=== PATIENT | male | born 1985 | race American Indian/Alaskan Native ===

== ENCOUNTER 2018-02-22 17:01 | Emergency (ER) | payer SELFPAY ==
[~2018-02-22] VITALS: Ht 175.3 cm; Wt 122.5 kg
[~2018-02-22 17:01] MED LIST: Bactrim Ds Tab1 EACH PO; CEPH500 PO; Nix Lice Treatm59 ML TOP; PERM5TC TOP; Permethrin60 GM TP; SULTRIDS PO; TRAZADONE; TRIA80TC TOP; Triamcinolone A15 GM TOP
== END 2018-02-22 17:35 ==
LOC: ER 17:01
DX: F10.129 Alcohol abuse with intoxication, unspecified (principal); F17.200 Nicotine dependence, unspecified, uncomplicated; Z91.013 Allergy to seafood; Z91.09 Other allergy status, other than to drugs and biological substances
CPT/HCPCS: 99283

== ENCOUNTER 2019-05-02 14:28 | Emergency (ER) | payer OTHER ==
[~2019-05-02] VITALS: Ht 175.3 cm; Wt 113.4 kg
[2019-05-02] MEDS ORDERED: HYDHCL25 PO (14:50)
[2019-05-02] MEDS ORDERED: Bactrim Ds Tab1 EACH PO (14:50)
[2019-05-02] MEDS ORDERED: CEPH500 PO (14:50)
== END 2019-05-02 15:10 | disposition home or self-care (01) ==
LOC: ER 14:28
DX: L03.116 Cellulitis of left lower limb (principal); L03.115 Cellulitis of right lower limb; L03.114 Cellulitis of left upper limb; L03.113 Cellulitis of right upper limb; Z88.8 Allergy status to other drugs, medicaments and biological substances; Z91.013 Allergy to seafood; Z79.899 Other long term (current) drug therapy; F17.200 Nicotine dependence, unspecified, uncomplicated
CPT/HCPCS: 90471; 90714; 99283-25

== ENCOUNTER 2020-04-02 18:54 | Emergency (ER) | payer OTHER ==
[~2020-04-02] VITALS: Ht 175.3 cm; Wt 90.7 kg
[~2020-04-02 18:54] MED LIST changes: +HYDHCL25 PO
[2020-04-02] MEDS ORDERED: TRAZ100 PO (19:04)
== END 2020-04-02 21:53 | disposition home or self-care (01) ==
LOC: ER 18:54
DX: S02.2XXA Fracture of nasal bones, initial encounter for closed fracture (principal); S01.81XA Laceration without foreign body of other part of head, initial encounter; Z91.013 Allergy to seafood; Z91.09 Other allergy status, other than to drugs and biological substances; Y04.0XXA Assault by unarmed brawl or fight, initial encounter
CPT/HCPCS: 12015; 70450; 70486; 99283-25; A9270-GY

== ENCOUNTER 2020-04-12 12:33 | Emergency (ER) | payer OTHER ==
[~2020-04-12] VITALS: Ht 177.8 cm; Wt 90.7 kg
[~2020-04-12 12:33] MED LIST changes: +TRAZ100 PO
[2020-05-29] MEDS ORDERED: Bactrim Ds Tab1 EACH PO (17:07)
== END 2020-04-12 14:44 | disposition home or self-care (01) ==
LOC: ER 12:33
DX: S01.81XD Laceration without foreign body of other part of head, subsequent encounter (principal); Z91.013 Allergy to seafood; Z91.09 Other allergy status, other than to drugs and biological substances; F17.210 Nicotine dependence, cigarettes, uncomplicated

== ENCOUNTER 2021-01-29 15:33 | Emergency (ER) | payer OTHER ==
[~2021-01-29] VITALS: Ht 175.3 cm; Wt 72.6 kg
== END 2021-01-29 17:10 | disposition home or self-care (01) ==
LOC: ER 15:33
DX: S30.810A Abrasion of lower back and pelvis, initial encounter (principal); Z91.013 Allergy to seafood; Z91.041 Radiographic dye allergy status; X58.XXXA Exposure to other specified factors, initial encounter
CPT/HCPCS: 12001; 99282-25

== ENCOUNTER 2021-03-30 00:42 | Emergency (ER) | payer OTHER ==
[~2021-03-30] VITALS: Ht 175.3 cm; Wt 95.2 kg
== END 2021-03-30 07:15 | disposition home or self-care (01) ==
LOC: ER 00:42
DX: S02.2XXA Fracture of nasal bones, initial encounter for closed fracture (principal); R04.0 Epistaxis; F17.200 Nicotine dependence, unspecified, uncomplicated; Z91.013 Allergy to seafood; Z91.041 Radiographic dye allergy status; Y04.2XXA Assault by strike against or bumped into by another person, initial encounter
CPT/HCPCS: 12011; 70450; 70486; 72125; 99284-25; A9270